=== PATIENT | male | born 1945 | race Caucasian/White ===

== ENCOUNTER 2024-07-15 06:35 | Emergency (ER) | payer MEDICARE, SELFPAY ==
[2024-07-15] VITALS (32 sets, daily range): BP systolic 129–163; BP diastolic 73–96; PULSE 100–132; RESP 14–24; O2SAT 94–100
--- NOTE | ~2024-07-15 | CT_ITS ---
EXAMINATION: CTA chest abdomen pelvis DATE: 07/15/2024 07:48 INDICATION: Epigastric abdominal pain. Back pain. TECHNIQUE: Computed tomographic angiography (CTA) of the chest, abdomen, and pelvis was performed wit h 100 mL Omnipaque-350 intravenous contrast. Automated exposure control and iterative reconstruction technique were employed. The dose-length product was 466.47 mGy-cm. Maximum intensity projection 3D-r econstructions of the aorta and other arteries were constructed by the technologist on a separate wor kstation. COMPARISON: None. FINDINGS: CHEST CTA: The lungs demonstrate mild atelectasis. A calcified left lung nodule and calcified left hilar lymph n odes are consistent with old granulomatous disease. No pleural effusion. The heart size is normal. No pericardial effusion. There is no pulmonary embolus. There is mild aortic atherosclerosis. There is mild chronic height loss of multiple vertebral bodies. There is mild thoracic spondylosis. ABDOMEN AND PELVIS CTA: The liver is normal. There are gallstones in the gallbladder, which is distended. Gallbladder wall th ickening is noted. There is a stone in the gallbladder neck. The spleen, pancreas, adrenal glands, an d right kidney are normal. There is a 2.7 cm mass in left kidney with heterogeneous attenuation. The appendix is normal. There are no dilated loops of bowel. Aortic atherosclerosis is noted. There is no significant stenosis of celiac axis, superior mesenteric artery, the renal arteries, or inferior mes enteric artery. There are no pathologically enlarged lymph nodes. There is no free intraperitoneal fl uid. There is moderate lumbar spondylosis. IMPRESSION: 1. Mild aortic atherosclerosis. No aneurysm or dissection. 2. Acute cholecystitis. 3. 2.7 cm mass in left kidney suspicious for renal cell carcinoma. Abdomen CT without and with contra st is recommended. Reviewed, dictated and finalized at location A. IMPRESSION: 1. Mild aortic atherosclerosis. No aneurysm or dissection. 2. Acute cholecystitis. 3. 2.7 cm mass in left kidney suspicious for renal cell carcinoma. Abdomen CT w ithout and with contrast is recommended.
--- NOTE | 2024-07-15 06:46 | ECG_ITS ---
Test Date: 2024-07-15 06:51:23 Measurements Intervals [place] Rate: 114 P: 41 AR: 207 QRS: 2 QRSD: 89 T: 10 QT: 300 QTc: 414 Interpretive Statements SINUS TACHYCARDIA WITH FIRST DEGREE AV BLOCK POSSIBLE LEFT ATRIAL ENLARGEMENT LOW QRS VOLTAGE IN PRECORDIAL LEADS INFERIOR INFARCT, AGE INDETERMINATE BASELINE ARTIFACT- I, III, AVR, AVL ABNORMAL ECG No previous ECG available for comparison Electronically Signed On 07-15-2024 10:39:12 CDT by Jose Cullen D.O.
[2024-07-15 07:07] LABS: Add Urine Microscopic? NO; Appearance Urine Clear (Clear); Bilirubin Urine Negative (Negative); Blood Urine Negative (Negative); Color Urine Yellow (Yellow); Glucose Urine UA 2+ mg/dL (Negative); Ketones Urine 2+ mg/dL (Negative); Leukocyte Esterase Ur Negative LEU/UL (Negative); Nitrate Urine Negative (Negative); Protein Urine Negative (Negative); Specific Grav Ur 1.019 (1.001-1.035); Urobilinogen Urine 0.2 mg/dL (<2.0)
[2024-07-15 07:10] LABS: Basophils Percent Auto 0.2 % (0.2-1.2); Eosinophils Percent Auto 0.2 % (0-4.4); Hematocrit 44.5 % (42.0-52.0); Hemoglobin 15.1 g/dL (14.0-18.0); Immature Granulocyte Absolute 0.25 K/mm3 (0.00-0.031); Immature Granulocyte Percent A 1.9 % (0-0.5); Lymphocytes Percent Auto 14.6 % (18.3-44.2); Mean Corpuscular HGB Conc 33.9 g/dl (32-36); Mean Corpuscular Hemoglobin 32.1 pg (26-34); Mean Corpuscular Volume 94.5 fl (80-100); Mean Platelet Volume 10.3 fl (7.4-10.4); Monocytes Absolute Auto 0.8 K/mm3 (0.1-0.6); Neutrophils Absolute Auto 10.1 K/mm3 (1.3-6.7); Neutrophils Percent Auto 77.1 % (45.5-73.1); Platelet Count Result 148 k/mm3 (150-375); Red Blood Count 4.71 M/mm3 (4.6-6.20); Red Cell Distribution Width 12.5 % (11.5-14.5); White Blood Count 13.1 K/mm3 (4.5-10.0)
--- NOTE | 2024-07-15 07:10 | ED.ABDPAIN ---
HPI - Abdominal Pain General Chief Complaint: Abdominal Pain Stated Complaint: abd pain Time Seen by Provider: 07/15/24 06:58 History of Present Illness HPI narrative: This is a 78-year-old male with a past medical history significant for hypertension diabetes who presents to the emergency room with a chief complaint of ?heartburn ?patient states that approximately 8:00 p.m. last night yet the son sensation that he was having severe pain between his shoulder blades he described as a sharp and tingling sensation. 30 minutes after they started developing and epigastric abdominal pain he described as heartburn but states that does not feel similar to his previous heartburn episodes. Pain has been present since this episode. Does not presently radiate to his back or chest. No associated difficulty breathing, nausea, vomiting, diaphoresis, pelvic pain, weakness, fatigue neuropathy. He took 4 baby aspirin prior to arrival to the emergency department. Patient is concerned that he is having some kind of cardiac event. No history of coronary disease or aortic pathology to patient's knowledge. Was otherwise in his normal state of health and had a regular outpatient primary care provider visit last week with no changes to his medication regimen. Related Data Allergies Allergy/AdvReac Type Severity Reaction Status Date / Time sulfamethoxazole Allergy Redness of Verified 07/15/24 06:46 [From Bactrim] Skin trimethoprim [From Bactrim] Allergy Redness of Verified 07/15/24 06:46 Skin Review of Systems Review of Systems: As reviewed above in HPI PMFSH Past Medical History Medical History (Updated 07/15/24 @ 12:13 by Aneesh Pham MD) Diabetes Hypertension Exam Narrative: GENERAL: [Well-appearing, well-nourished, and in no acute distress.] HEAD: [Normocephalic, atraumatic.] EYES: [PERRLA and EOMI.] ENT: Nares clear, no rhinorrhea or epistaxis. Mucous membranes moist. NECK: Supple. CHEST: [Clear to auscultation. No respiratory distress.] HEART: [Regular rate and rhythm]. No murmur heard. [Normal peripheral pulses.] Warm extremities, 2+ radial pulses. 2+ dorsalis pedis pulses. ABDOMEN: [Soft, nondistended], [nontender], [No rigidity or guarding] EXTREMITIES: Normal range of motion. [No edema.] SKIN: Warm, dry, no rash. NEURO: [No focal deficits]. Alert and oriented [x3.] PSYCH: [Normal mood and affect.] Course Vital Signs Vital signs: Vital Signs Pulse Rate 126 H 07/15/24 06:42 Respiratory Rate 22 H 07/15/24 06:42 Blood Pressure 160/96 H 07/15/24 06:42 Pulse Oximetry 100 07/15/24 06:42 Oxygen Delivery Room Air 07/15/24 06:42 Pulse Rate 111 H 07/15/24 11:30 Respiratory Rate 24 H 07/15/24 11:30 Blood Pressure 133/76 07/15/24 10:01 Pulse Oximetry 99 07/15/24 11:30 Oxygen Delivery Room Air 07/15/24 06:42 MDM - Abdominal Pain MDM Narrative Medical decision making narrative: This is a 78-year-old male with history of hypertension and diabetes who presents today with a chief complaint of ?heartburn. He describes a episode of severe sharp pain in the center of his shoulder blades associated with a tingling sensation at approximately 8:00 p.m. last night sudden onset without any trauma or injury. This was nonexertional onset. 30 minutes after this was onset he started feeling abdominal discomfort and epigastric pain he describes as below his rib cage. No associated nausea, vomiting, weakness, fatigue, neurological symptoms, diaphoresis. Patient states his shoulder blade pain has since subsided. He did take aspirin prior to arrival. Abdominal pain still present although he has a soft nontender nondistended abdomen. He has normal peripheral perfusion and a benign neurological assessment, clear lung auscultation. He is tachycardic, hypertensive a little tachypneic. Differential diagnosis at this time includes ACS, acute aortic syndrome, heartburn, gastritis, cholelit
[2024-07-15 07:17] LABS: Alanine Aminotransferase 19 U/L (6-50); Albumin Level 4.6 g/dL (3.5-5.1); Alkaline Phosphatase 77 U/L (38-126); Anion Gap 12 mmol/L (4-12); Aspartate Amino Transferase 44 U/L (17-59); Bilirubin,Total 1.9 mg/dL (0.2-1.3); Blood Urea Nitrogen 27 mg/dL (9-20); Calcium 9.1 mg/dL (8.4-10.2); Carbon Dioxide 26 mmol/L (22-30); Chloride 95 mmol/L (98-107); Estimated CRCL calculation 63 ml/min; Estimated Glomerular Filt Rate > 60; Glucose 206 mg/dL (65-110); Lipase 171 U/L (23-300); Potassium 3.8 mmol/L (3.4-5.0); Sodium 133 mmol/L (137-145)
[2024-07-15] MEDS: FAMOTIDINE 20 MG/2 ML VIAL IV PUSH (07:17)
[2024-07-15] MEDS: MORPHINE SULFATE (*CRX) 4 MG/ML INJ IV PUSH (07:17)
[2024-07-15] MEDS: LACTATED RINGERS 1,000 ML 999 ML IV CONT ×2 (07:18→08:55)
[2024-07-15] MEDS: metroNIDAZOLE 500 MG/ISO 100ML 500 MG/100 ML BAG 100 MG IVPB (08:47)
[2024-07-15 09:12] LABS: Troponin I < 0.012 ng/mL (0.000-0.034)
== END 2024-07-15 12:28 | disposition home or self-care (01) ==
PROVIDERS: Emergency Medicine; Emergency Provider Student in an Organized Health Care Education/Training Program
DX: K81.0 Acute cholecystitis (principal); C64.2 Malignant neoplasm of left kidney, except renal pelvis; I10 Essential (primary) hypertension; E11.9 Type 2 diabetes mellitus without complications
CPT/HCPCS: 36415; 71275; 74174; 80053; 81003; 83690; 84484; 85025; 93005; 96361; 96365; 96367; 96375; 99284; J0696; J1836; J2270; J7120; Q9967

== ENCOUNTER 2024-07-17 09:38 | Inpatient (IN) | payer MEDICARE, SELFPAY ==
[2024-07-17] VITALS (37 sets, daily range): BP systolic 151–177; BP diastolic 72–100; PULSE 89–116; RESP 17–19; TEMP 36.7–38.4; O2SAT 92–100; BMI 23.6
--- NOTE | ~2024-07-17 | MR_ITS ---
EXAMINATION: MR MRCP wo/w con/w 3D wo ind DATE: 07/18/2024 08:09 INDICATION: Hyperbilirubinemia TECHNIQUE: Magnetic resonance imaging (MRI) of the abdomen was performed without and with 15 mL Multi priti intravenous contrast. Sequences included coronal T2-weighted SS-FSE, coronal T2-weighted FS SS- FSE, coronal T2-weighted FS FIESTA, axial T2-weighted FS FIESTA, axial T2-weighted FIESTA, sagittal T 2-weighted SS-FSE, axial T1-weighted dual-echo FSPGR, axial T2-weighted SS-FSE, axial T1-weighted LAV A, axial T2-weighted STIR FSE. Thick-slab T2-weighted FRFSE-XL images were obtained for magnetic reso nance cholangiopancreatography (MRCP). Rotating maximum intensity projection 3-D reconstructions of t he volumetric data were created by the technologist. Postcontrast sequences included a time course of axial T1-weighted LAVA. COMPARISON: CT dated 07/15/2024 FINDINGS: ABDOMEN MRI: Heart size is normal. No pericardial or pleural effusion. Periportal edema throughout th e liver. There is gallbladder wall thickening with surrounding inflammatory stranding consistent with acute cholecystitis. There are a few low signal intensity gallstones, the largest persists and is li jailyn impacted at the neck of the gallbladder. The pericholecystic inflammation has progressed since t he prior study, now extending about the duodenum and the head of the otherwise normal pancreas. Splee n and bilateral adrenal glands are normal. There are bilateral parapelvic cysts at the kidneys. 2.8 c m exophytic enhancing mass at the anterior interpolar region of the left kidney consistent with renal cell carcinoma. There is edematous wall thickening at the duodenum which is likely reactive related to the adjacent acute cholecystitis. Visualized bowels are otherwise unremarkable with no obstruction . There is mild spondylosis in the thoracic and lumbar spine with associated fibrofatty degenerative endplate changes at a few levels. Marrow signal otherwise normal. ABDOMEN MRCP: No intrahepatic ductal or ductal dilation. Common bile duct is normal in caliber measuring 2-3 mm in maximal diameter with no evident choledocholithiasis or other obstructing masses or lesions. Main conrad creatic duct is also normal caliber throughout. IMPRESSION: 1. Acute cholecystitis with likely impacted gallstone at the neck of the gallbladder. 2. 2.8 cm enhancing left renal mass consistent with renal cell carcinoma. Reviewed, dictated and finalized at location B. IMPRESSION: 1. Acute cholecystitis with likely impacted gallstone at the neck of the gallbl adder. 2. 2.8 cm enhancing left renal mass consistent with renal cell carcinoma.
--- NOTE | ~2024-07-17 | XR_ITS ---
EXAMINATION: XR chest 1V portable DATE: 07/18/2024 09:16 INDICATION: Chest pain. TECHNIQUE: A single frontal view of the chest was obtained. COMPARISON: Chest CT 07/15/2024 FINDINGS: Calcified pulmonary nodules are consistent with old granulomatous disease. There is mild at electasis at the lung bases. No pleural effusion or pneumothorax. The heart size is normal. There is a prominent fat pad in left costophrenic angle. IMPRESSION: 1. Mild atelectasis at the lung bases. Reviewed, dictated and finalized at location A.
--- NOTE | ~2024-07-17 | US_ITS ---
EXAMINATION: US abdomen limited DATE: 07/17/2024 10:40 INDICATION: Biliary colic. TECHNIQUE: Multiple grayscale and Doppler ultrasound images of the abdomen were obtained. COMPARISON: CT 07/15/2024 FINDINGS: The visualized portion of the body of the pancreas is normal. The liver is normal without f ocal lesion. There is normal flow in main portal vein. The gallbladder is normal in size and contains gallstones. Gallbladder wall thickening is noted. There was no sonographic Ellis's sign. The common duct is normal and measures 4 mm. There is trace pericholecystic fluid. IMPRESSION: 1. Normal-sized gallbladder with gallstones and gallbladder wall thickening suspicious for acute chol ecystitis. Reviewed, dictated and finalized at location A. IMPRESSION: 1. Normal-sized gallbladder with gallstones and gallbladder wall thickening karen picious for acute cholecystitis.
[2024-07-17 10:05] LABS: Basophils Percent Auto 0.2 % (0.2-1.2); Eosinophils Percent Auto 0.1 % (0-4.4); Hematocrit 45.7 % (42.0-52.0); Hemoglobin 15.7 g/dL (14.0-18.0); Immature Granulocyte Absolute 0.11 K/mm3 (0.00-0.031); Immature Granulocyte Percent A 0.6 % (0-0.5); Lymphocytes Absolute Auto 1.06 K/mm3 (0.9-3.2); Lymphocytes Percent Auto 6.2 % (18.3-44.2); Mean Corpuscular HGB Conc 34.4 g/dl (32-36); Mean Corpuscular Hemoglobin 32.6 pg (26-34); Mean Corpuscular Volume 94.8 fl (80-100); Mean Platelet Volume 10.4 fl (7.4-10.4); Neutrophils Absolute Auto 14.9 K/mm3 (1.3-6.7); Neutrophils Percent Auto 86.9 % (45.5-73.1); Platelet Count Result 147 k/mm3 (150-375); Red Blood Count 4.82 M/mm3 (4.6-6.20); Red Cell Distribution Width 12.8 % (11.5-14.5); White Blood Count 17.1 K/mm3 (4.5-10.0)
[2024-07-17 10:09] LABS: Add Urine Microscopic? YES; Appearance Urine Clear (Clear); Bacteria Urine None Seen /hpf; Bilirubin Urine Negative (Negative); Blood Urine Non-Hemolyzed Trace (Negative); Color Urine Yellow (Yellow); Glucose Urine UA 3+ mg/dL (Negative); Ketones Urine 4+ mg/dL (Negative); Leukocyte Esterase Ur Negative LEU/UL (Negative); Nitrate Urine Negative (Negative); Protein Urine 1+ mg/dL (Negative); RBC Urine 0-2 /hpf (0-2); Specific Grav Ur 1.036 (1.001-1.035); Squamous Epithelial Cell Urine None Seen /hpf (Few); WBC Urine 0-5 /hpf (0-3)
--- NOTE | 2024-07-17 10:23 | ED.ABDPAIN ---
HPI - Abdominal Pain General Chief Complaint: Abdominal Pain Stated Complaint: abd pain gallblader problems Time Seen by Provider: 07/17/24 09:44 Source: patient Mode of arrival: ambulatory Limitations: no limitations History of Present Illness HPI narrative: This is a 78 year old male that presents to the ER for epigastric abdominal pain. Ongoing over the last couple of days. Was evaluated in the ER and diagnosed with cholecystitis. Started on oral antibiotics and was going to have further outpatient follow-up. His pain has been uncontrolled with prescribed pain medications which prompted him to be seen today. He has not been able to eat much due to pain. Denies fevers or vomiting. Related Data Home Medications Medication Instructions Recorded Confirmed aspirin 81 mg tablet 81 mg PO DAILY 07/17/24 07/17/24 atorvastatin 10 mg tablet 10 mg PO DAILY 07/17/24 07/17/24 lisinopril 2.5 mg tablet 2.5 mg PO DAILY 07/17/24 07/17/24 metformin 1,000 mg tablet 1,000 mg PO BID 07/17/24 07/17/24 [id number] 120 mcg-lutein 1 tablet PO DAILY 07/17/24 07/17/24 150 mcg-herb 50 mg chewable tablet (Alive Men's 50 Plus Multivitamin) sitagliptin phosphate 25 mg tablet 25 mg PO DAILY 07/17/24 07/17/24 (Januvia) Allergies Allergy/AdvReac Type Severity Reaction Status Date / Time sulfamethoxazole Allergy Redness of Verified 07/15/24 06:46 [From Bactrim] Skin trimethoprim [From Bactrim] Allergy Redness of Verified 07/15/24 06:46 Skin Review of Systems Review of Systems: CONSTITUTIONAL: Denies fever GASTROINTESTINAL: Reports abdominal pain, nausea. Denies vomiting, or diarrhea. All systems reviewed & are unremarkable except as noted in HPI and below PMFSH Past Medical History Medical History Diabetes Dyslipidemia History of prostate cancer s/p prostatectomy Hypertension Surgical History Surgical History History of prostatectomy Social History Social History Smoking status: Never smoker Alcohol intake: never Alcohol use details: Occasional, maybe 2-3 drinks per week. Substance use: never Do You Feel Safe in your Home?: Yes Lack of Transportation: No Lack of Food: Never True Current Housing: I Have Housing Concerned About Future Housing: No Difficulty Paying Gas/Electric Bills: No Difficulty Paying for Meds: No Currently Unemployed: No Education: Bachelor's Degree Difficulty w/ Childcare or Family Care: No Living arrangements: alone Spiritual care concerns: No Exam Narrative: GENERAL: Well-appearing, well-nourished, and in no acute distress. HEAD: Normocephalic, atraumatic. EYES: EOMI. CHEST: Clear to auscultation. No respiratory distress. No wheezes rales or rhonchi HEART: Regular rate and rhythm. No murmur heard. Normal peripheral pulses. ABDOMEN: Soft, nondistended, normal active bowel sounds. Mild tenderness to palpation in the epigastrium and RUQ, without guarding EXTREMITIES: Normal range of motion. No edema. SKIN: Warm, dry, no rash. NEURO: No focal deficits. Alert and oriented x3. PSYCH: Normal mood and affect Course Course Emergency Course: Patient updated on his workup and recommendation for admission Consultations Consultation #1: Spoke with general surgery who will consult. Date: 07/17/24 Consultation #2: Spoke with hospitalist who accepts admission Date: 07/17/24 Vital Signs Vital signs: Vital Signs Temperature 98.0 F 07/17/24 09:42 Pulse Rate 116 H 07/17/24 09:42 Respiratory Rate 17 07/17/24 09:42 Blood Pressure 156/95 H 07/17/24 09:42 Pulse Oximetry 98 07/17/24 09:42 Oxygen Delivery Room Air 07/17/24 09:42 Temperature 99.3 F 07/17/24 18:18 Pulse Rate 111 H 07/17/24 15:32 Respiratory Rate 19 07/17/24 15:32 Blood Pressure 155
[2024-07-17] MEDS: ONDANSETRON INJ 4 MG/2 ML VIAL IV PUSH (10:30)
[2024-07-17] MEDS: MORPHINE SULFATE (*CRX) 4 MG/ML INJ IV PUSH (10:31)
[2024-07-17] MEDS: SODIUM CHLORIDE 0.9% IV 1,000 ML 999 ML IV CONT ×2 (10:31→13:35)
[2024-07-17 10:39] LABS: Alanine Aminotransferase 18 U/L (6-50); Albumin Level 4.6 g/dL (3.5-5.1); Alkaline Phosphatase 53 U/L (38-126); Anion Gap 13 mmol/L (4-12); Aspartate Amino Transferase 35 U/L (17-59); Bilirubin,Total 3.1 mg/dL (0.2-1.3); Blood Urea Nitrogen 15 mg/dL (9-20); Calcium 9.1 mg/dL (8.4-10.2); Carbon Dioxide 24 mmol/L (22-30); Chloride 96 mmol/L (98-107); Estimated CRCL calculation 63 ml/min; Estimated Glomerular Filt Rate > 60; Glucose 234 mg/dL (65-110); Lipase 45 U/L (23-300); Potassium 4.2 mmol/L (3.4-5.0); Sodium 133 mmol/L (137-145)
[2024-07-17 11:23] LABS: Lactic Acid Reflex 0.5 mmol/L (0.7-2.0)
[2024-07-17 11:27] LABS: CRP 4.4 mg/dL (<1.0)
[2024-07-17] MEDS: PIPERACILLN/TAZ 3.375GM/NS50ML 3.375 GM/50 ML BAG IVPB ×3 (13:37→23:40)
--- NOTE | 2024-07-17 13:38 | PM.CNGS ---
Assessment and Plan Assessment and plan (1) Acute cholecystitis: Code(s): K81.0 - Acute cholecystitis Status: Acute Assessment and Plan: This is the second presentation to the ED in 3 days for epigastric pain with imaging suggesting acute cholecystitis. WBC count has gone up to 17,000 and his total bilirubin is elevated at 3.1 as well. No biliary dilatation on CTA or ultrasound. We would recommend getting an MRCP to further evaluate for choledocholithiasis. He will eventually need a cholecystectomy, but will await MRCP results. If there is a common duct stone, then he will need GI consultation. Keep NPO for now with IV fluids and IV antibiotics. Will follow along. (2) Hyperbilirubinemia: Code(s): E80.6 - Other disorders of bilirubin metabolism Status: Acute Assessment and Plan: Total bilirubin is up from 1.9 to 3.1 today. Will get an MRCP to rule out common bile duct stone. Could also be related to cholecystitis. Trend labs. (3) Renal mass: Code(s): N28.89 - Other specified disorders of kidney and ureter Status: Acute Assessment and Plan: Incidentally noted on CTA 2 days ago, concerning for renal cell carcinoma. Urology consulted by ED provider and patient reportedly is scheduled for an appointment as an outpatient on Wednesday for further workup. (4) Diabetes: Code(s): E11.9 - Type 2 diabetes mellitus without complications Status: Chronic (5) Hypertension: Code(s): I10 - Essential (primary) hypertension Status: Chronic Plan I have discussed the patient's case and plan of care with Dr. Diaz. Thank you for allowing us to see the patient in consultation and we will continue to follow along with you. History of Present Illness Consult details Consult date: 07/17/24 Reason for consult: other (Acute cholecystitis) Requesting physician: Emily Moses PA-C Narrative: This is a 78 yo man with PMH diabetes, hypertension, hyperlipidemia, who we have been asked to see in surgical consultation for acute cholecystitis. He initially came into the ED on Wednesday with complaints of epigastric abdominal pain starting the night prior. He reports eating dinner Wednesday evening and first noticing heartburn. A few hours later, he developed epigastric abdominal pain that radiated into his back between his shoulder blades. Workup in the ED showed mild leukocytosis and mild elevation in his total bilirubin. Cardiac workup negative for acute coronary syndrome. CTA chest, abdomen, and pelvis showed findings of acute cholecystitis with a gallstone in the gallbladder neck, as well as a 2.7 cm mass in the left kidney suspicious for renal cell carcinoma, and mild aortic atherosclerosis. His abdominal pain resolved in the ED and he was discharged home with oral antibiotics and follow-up with Dr. Pedersen this week. He was also sent home with Tylenol and Zofran. He reports no symptoms until around noon the following day. He had cereal in the morning for breakfast and a few hours later, his epigastric abdominal pain returned. He denies nausea, vomiting, fever, or chills. Denies acholic stools or dark-colored urine. He tried taking Tylenol for his pain, which would help for an hour and a half, and then the pain would progress again. Due to his persistent pain, he returned to the ED today for evaluation. Labs revealed his WBC count up to 17,000 and total bilirubin is up to 3.1. Lipase normal. RUQ abdominal ultrasound showed a normal-sized gallbladder with gallstones and gallbladder wall thickening suspicious for acute cholecystitis. Our service was contacted by the ED provider and he is now seen in the ED. His abdominal pain has resolved after having IV Morphine. He denies any other complaints at this time. Only previous surgical history is a prostatectomy over 25 years ago. Review of Systems Review of Systems: All systems reviewed & are unremarkable except as noted in HPI and below PMFSH Past Medical Histo
--- NOTE | 2024-07-17 14:10 | PC.NURSE ---
Called [facility] was told that nurse was at lunch and she would call back when she's available.
[2024-07-17] MEDS: ACETAMINOPHEN 325 MG TABLET 650 MG PO (16:22)
[2024-07-17] MEDS: SODIUM CHLORIDE 0.9% IV 1,000 ML 125 ML IV CONT (16:22)
[2024-07-17 17:20] LABS: Glucose Point of Care 205 mg/dl (65-105)
[2024-07-17 20:42] LABS: Glucose Point of Care 178 mg/dl (65-105)
--- NOTE | 2024-07-17 23:17 | PM.IMHP ---
H&P: HPI History of Present Illness Date/Time: 07/17/24 23:30 Chief Complaint: Abdominal pain. Narrative: This is a pleasant 78-year-old male with hypertension and type 2 diabetes mellitus who presented to the emergency department via private vehicle for evaluation of abdominal pain. The patient provides the following history. He has been having upper abdominal pain for several days and was seen in emergency department 2 days ago at which time he was diagnosed with cholecystitis. CT scan also showed a 2.7 cm mass in the left kidney suspicious for renal cell carcinoma. ED physician consulted with the on-call surgeon who recommended antibiotics and outpatient follow-up. He does not have much of an appetite and admits he has not really had anything to eat or drink the last couple of days. His pain continues and he has started to develop chills and sweats and he returned. He denies cold and flu symptoms, chest pain, shortness of breath, vomiting, diarrhea, dysuria, and hematuria. In the ED: Temperature was as high as 101.2? F. he has been tachycardic in the low 100s. Blood pressures have been running in the 160s to 170 systolic. Labs are significant for WBC count of 17.1, platelet 147, sodium 133, chloride 96, glucose 234, lactic acid 0.5, total bilirubin 3.1, CRP 4.4. Abdominal ultrasound showed the suspicious for acute cholecystitis. He received 2 L IV fluid and was started on Zosyn. He is being admitted in this setting for further treatment and surgery consultation. Review of Systems Review of Systems: 12 systems were reviewed and are negative except for as per HPI. [facility] Past Medical History Medical History (Updated 07/17/24 @ 23:40 by Janae Rios PA-C) Dyslipidemia Hypertension Prostate cancer Status post prostatectomy. Type 2 diabetes mellitus Surgical History Surgical History History of prostatectomy Social History Social History (Updated 07/17/24 @ 23:37 by Janae Rios PA-C) Social History: Surrogate medical decision maker: Francisco J Roth, brother. Code status: Full code. Smoking status: Never smoker Alcohol intake: never Alcohol use details: Occasional, maybe 2-3 drinks per week. Substance use: never Do You Feel Safe in your Home?: Yes Lack of Transportation: No Lack of Food: Never True Current Housing: I Have Housing Concerned About Future Housing: No Difficulty Paying Gas/Electric Bills: No Difficulty Paying for Meds: No Currently Unemployed: No Education: Bachelor's Degree Difficulty w/ Childcare or Family Care: No Living arrangements: alone Spiritual care concerns: No Meds Home Medications and Allergies Home Medications Medication Instructions Recorded Confirmed Type acetaminophen 500 mg tablet 1,000 mg PO TID PRN pain #30 tabs 07/15/24 07/17/24 Rx (Tylenol Extra Strength) ondansetron 4 mg disintegrating 4 mg PO Q8H PRN nausea and 07/15/24 07/17/24 Rx tablet vomiting #10 tabs aspirin 81 mg tablet 81 mg PO DAILY 07/17/24 07/17/24 History atorvastatin 10 mg tablet 10 mg PO DAILY 07/17/24 07/17/24 History lisinopril 2.5 mg tablet 2.5 mg PO DAILY 07/17/24 07/17/24 History metformin 1,000 mg tablet 1,000 mg PO BID 07/17/24 07/17/24 History [id number]-pll-upzaz 120 mcg-lutein 1 tablet PO DAILY 07/17/24 07/17/24 History 150 mcg-herb 50 mg chewable tablet (Alive Men's 50 Plus Multivitamin) sitagliptin phosphate 25 mg tablet 25 mg PO DAILY 07/17/24 07/17/24 History (Lita) Allergies Allergy/AdvReac Type Severity Reaction Status Date / Time sulfamethoxazole Allergy Redness of Verified 07/15/24 06:46 [From Bactrim] Skin trimethoprim [From Bactrim] Allergy Redness of Verified 07/15/24 06:46 Skin Vital Signs Vital Signs - 24 hr 07/17/24 09:42 07/17/24 10:03 07/17/24 10:15 Temperature 98.0 F Pulse Rate 116 H Respiratory Rate 17 Blood Pressure 156/95 H
[2024-07-18 00:25] LABS: Anion Gap 13 mmol/L (4-12); Blood Urea Nitrogen 10 mg/dL (9-20); Calcium 8.6 mg/dL (8.4-10.2); Carbon Dioxide 19 mmol/L (22-30); Chloride 103 mmol/L (98-107); Estimated CRCL calculation 63 ml/min; Estimated Glomerular Filt Rate > 60; Glucose 179 mg/dL (65-110); Potassium 4.2 mmol/L (3.4-5.0); Sodium 135 mmol/L (137-145)
[2024-07-18 00:33] LABS: Beta-Hydroxybutyrate/Acetoacetate 2.68 mmol/L (0.02-0.27)
[2024-07-18] MEDS: ACETAMINOPHEN 325 MG TABLET 650 MG PO (02:27)
[2024-07-18] MEDS: SODIUM CHLORIDE 0.9% IV 1,000 ML 100 ML IV CONT (02:27)
[2024-07-18 06:00] VITALS: BP 151/70; PULSE 108; RESP 18; TEMP 37.3; O2SAT 95
[2024-07-18 06:02] LABS: Basophils Percent Auto 0.2 % (0.2-1.2); Eosinophils Percent Auto 0.1 % (0-4.4); Hemoglobin 14.4 g/dL (14.0-18.0); Immature Granulocyte Absolute 0.13 K/mm3 (0.00-0.031); Immature Granulocyte Percent A 0.9 % (0-0.5); Immature Platelet Fraction Pct 4.4 % (0.9-11.2); Lymphocytes Absolute Auto 0.76 K/mm3 (0.9-3.2); Lymphocytes Percent Auto 5.3 % (18.3-44.2); Mean Corpuscular HGB Conc 34.3 g/dl (32-36); Mean Corpuscular Hemoglobin 32.8 pg (26-34); Mean Corpuscular Volume 95.7 fl (80-100); Mean Platelet Volume 10.7 fl (7.4-10.4); Monocytes Absolute Auto 0.7 K/mm3 (0.1-0.6); Monocytes Percent Auto 5.1 % (2.6-8.5); Neutrophils Absolute Auto 12.8 K/mm3 (1.3-6.7); Neutrophils Percent Auto 88.4 % (45.5-73.1); Platelet Count Result 142 k/mm3 (150-375); Red Blood Count 4.39 M/mm3 (4.6-6.20); Red Cell Distribution Width 12.9 % (11.5-14.5); White Blood Count 14.4 K/mm3 (4.5-10.0)
[2024-07-18] MEDS: PIPERACILLN/TAZ 3.375GM/NS50ML 3.375 GM/50 ML BAG IVPB ×4 (06:08→23:06)
[2024-07-18 06:12] LABS: Alanine Aminotransferase 13 U/L (6-50); Albumin Level 3.8 g/dL (3.5-5.1); Alkaline Phosphatase 59 U/L (38-126); Anion Gap 13 mmol/L (4-12); Aspartate Amino Transferase 24 U/L (17-59); Bilirubin,Total 2.1 mg/dL (0.2-1.3); Blood Urea Nitrogen 10 mg/dL (9-20); Calcium 8.4 mg/dL (8.4-10.2); Carbon Dioxide 17 mmol/L (22-30); Chloride 103 mmol/L (98-107); Estimated CRCL calculation 71 ml/min; Estimated Glomerular Filt Rate > 60; Glucose 184 mg/dL (65-110); Magnesium 1.9 mg/dL (1.6-2.3); Potassium 4.1 mmol/L (3.4-5.0); Sodium 133 mmol/L (137-145)
[2024-07-18 08:33] LABS: Glucose Point of Care 204 mg/dl (65-105)
[2024-07-18 08:44] VITALS: BP 166/82; PULSE 106; RESP 18; TEMP 37.1; O2SAT 95
[2024-07-18] MEDS: lisinopriL 2.5 MG TABLET PO (08:46)
--- NOTE | 2024-07-18 09:29 | WPDURCON ---
Assessment and Plan Assessment and plan (1) Left renal mass: Code(s): N28.89 - Other specified disorders of kidney and ureter Status: Acute Assessment and Plan: 2.7 cm left renal mass suspicious for renal cell carcinoma incidentally noted on CTA. Discussed findings with patient at length. Outpatient follow-up has been arranged. No further intervention during this hospitalization. Urology Consult Note HPI Date Seen: 07/18/24 Requesting Physician: Kurt Frank MD Primary Care Provider: UNKNOWN,DOCTOR Consult Narrative Narrative: Favian Roth is a 78 year old male with a history of prostate cancer s/p prostatectomy in 2002 who is being seen in consultation for left renal mass. The patient initially presented to the emergency department on 07/15/2024 with complaints of her per in concern for cardiac event. He had full workup completed during that time including a CTA of the chest/abdomen/pelvis which incidentally revealed a 2.7 cm mass in the left kidney suspicious for renal cell carcinoma. Case was discussed with Dr. Carroll by ER physician and patient was informed of need for outpatient follow-up. He was discharged from the ER. He has been scheduled for an outpatient visit with Dr. Huddlseton on 07/21/2024. Unfortunately, he presented again to the ER on 07/17/2024 with complaints of epigastric abdominal pain and was admitted for possible cholecystitis. He requested urologic evaluation during admission to further address his left renal mass. At the time of my evaluation, the patient is feeling well. He denies flank pain or back pain. He has no additional concerns at this time. Following his prostatectomy, he has not required any further urologic follow-up and has had no issues. He denies any family history of malignancy. He is a never smoker. Review of Systems Review of Systems: All systems reviewed & are unremarkable except as noted in HPI and below PMFSH Past Medical History Medical History (Updated 07/17/24 @ 23:40 by Janae Rios PA-C) Dyslipidemia Hypertension Prostate cancer Status post prostatectomy. Type 2 diabetes mellitus Surgical History Surgical History History of prostatectomy Social History Social History (Updated 07/17/24 @ 23:37 by Janae Rios PA-C) Social History: Surrogate medical decision maker: Francisco J Roth, brother. Code status: Full code. Smoking status: Never smoker Alcohol intake: never Alcohol use details: Occasional, maybe 2-3 drinks per week. Substance use: never Do You Feel Safe in your Home?: Yes Lack of Transportation: No Lack of Food: Never True Current Housing: I Have Housing Concerned About Future Housing: No Difficulty Paying Gas/Electric Bills: No Difficulty Paying for Meds: No Currently Unemployed: No Education: Bachelor's Degree Difficulty w/ Childcare or Family Care: No Living arrangements: alone Spiritual care concerns: No Meds Home Medications and Allergies Home Medications Medication Instructions Recorded Confirmed Type acetaminophen 500 mg tablet 1,000 mg PO TID PRN pain #30 tabs 07/15/24 07/17/24 Rx (Tylenol Extra Strength) ondansetron 4 mg disintegrating 4 mg PO Q8H PRN nausea and 07/15/24 07/17/24 Rx tablet vomiting #10 tabs aspirin 81 mg tablet 81 mg PO DAILY 07/17/24 07/17/24 History atorvastatin 10 mg tablet 10 mg PO DAILY 07/17/24 07/17/24 History lisinopril 2.5 mg tablet 2.5 mg PO DAILY 07/17/24 07/17/24 History metformin 1,000 mg tablet 1,000 mg PO BID 07/17/24 07/17/24 History [id number] 120 mcg-lutein 1 tablet PO DAILY 07/17/24 07/17/24 History 150 mcg-herb 50 mg chewable tablet (Alive Men's 50 Plus Multivitamin) sitagliptin phosphate 25 mg tablet 25 mg PO DAILY 07/17/24 07/17/24 History (Lita) Allergies Allergy/AdvReac Type Severity Reaction Status Date / Time sulf
--- NOTE | 2024-07-18 09:52 | ECG_ITS ---
Measurements Intervals [place] Rate: 103 P: 24 TX: 164 QRS: -8 QRSD: 105 T: -1 QT: 332 QTc: 391 Interpretive Statements SINUS TACHYCARDIA DELAYED PRECORDIAL R/S TRANSITION INFERIOR INFARCT, AGE INDETERMINATE ABNORMAL ECG Electronically Signed On 07-18-2024 15:19:21 CDT by Jose HURST
[2024-07-18 10:09] LABS: Beta-Hydroxybutyrate/Acetoacetate 3.25 mmol/L (0.02-0.27)
[2024-07-18 10:12] LABS: Troponin I < 0.012 ng/mL (0.000-0.034)
--- NOTE | 2024-07-18 10:44 | PM.PNGS ---
Progress Note: A&P Assessment and Plan (1) Acute cholecystitis: Code(s): K81.0 - Acute cholecystitis Status: Acute Assessment and Plan: MRCP showed acute cholecystitis. No abdominal pain this morning but patient had a fever last night Discussed treatment options in detail. Given his recurrent symptoms and sepsis, he would likely fail conservative management or return with recurrent issues. We also discussed the option of a laparoscopic cholecystectomy that would be done by Dr. Diaz. Description of the procedure, risks, benefits, expected outcomes, and expected recovery were discussed with the patient in detail. We discussed the risks of bile leak and bile duct injury, liver/bowel injury, bleeding, and infection. Also discussed the possibility of having to convert to an open procedure if necessary. He wishes to proceed with surgery. We have added him to the surgery schedule for tomorrow. Will start a diet and make him NPO after midnight. Continue IV antibiotics. (2) Sepsis: Code(s): A41.9 - Sepsis, unspecified organism Status: Acute Assessment and Plan: Secondary to acute cholecystitis Continue IV antibiotics. Febrile last night, WBC trending down. Blood cx pending Plan I have discussed the patient's case and plan of care with Dr. Diaz. Subjective Subjective Date/Time Seen: 07/18/24 10:44 Patient reports: no new complaints and fever Interval history: Patient seen today. WBC count down to 14.4k and total bilirubin down to 2.1. He had a fever last night and reports having mid sternal chest pain earlier this morning that spontaneously resolved. He had a troponin drawn that was negative. MRCP today showe acute cholecystitis. Exam Const: General: comfortable and no acute distress Orientation/consciousness: patient oriented x3 GI: Inspection: non-distended GI Palp: Yes Soft to palpation, No Tenderness to palpation present (GI), Yes Guarding due to palpation present (GI) (RUQ), Yes No hepatosplenomegaly present and No Rebound tenderness present Auscultation: normal bowel sounds Objective Data Vital Signs Vital Signs: Vital Signs - 24 hr 07/17/24 10:45 07/17/24 11:00 07/17/24 11:18 Temperature Pulse Rate Respiratory Rate Blood Pressure Pulse Oximetry 95 96 95 Oxygen Delivery 07/17/24 11:32 07/17/24 11:45 07/17/24 11:46 Temperature Pulse Rate Respiratory Rate Blood Pressure 166/99 H Pulse Oximetry 97 98 96 Oxygen Delivery 07/17/24 12:00 07/17/24 12:01 07/17/24 12:15 Temperature Pulse Rate Respiratory Rate Blood Pressure 163/93 H Pulse Oximetry 99 99 97 Oxygen Delivery 07/17/24 12:16 07/17/24 12:30 07/17/24 12:31 Temperature Pulse Rate Respiratory Rate Blood Pressure 173/100 H 168/96 H Pulse Oximetry 97 97 97 Oxygen Delivery 07/17/24 12:49 07/17/24 13:13 07/17/24 13:15 Temperature Pulse Rate Respiratory Rate Blood Pressure Pulse Oximetry 98 97 92 Oxygen Delivery 07/17/24 13:16 07/17/24 13:31 07/17/24 13:32 Temperature Pulse Rate Respiratory Rate Blood Pressure 167/87 H 177/89 H Pulse Oximetry 94 93 97 Oxygen Delivery 07/17/24 13:45 07/17/24 13:46 07/17/24 13:56 Temperature Pulse Rate Respiratory Rate Blood Pressure 173/93 H Pulse Oximetry 95 97 100 Oxygen Delivery 07/17/24 14:00 07/17/24 14:16 07/17/24 14:33 Temperature 98.7 F Pulse Rate Respiratory Rate Blood Pressure 151/93 H 160/76 H Pulse Oximetry 97 Oxygen Delivery 07/17/24 15:32 07/17/24 16:14 07/17/24 16:22 Temperature 100.4 F H 100.9 F H 100.9 F H Pulse Rate 111 H Respiratory Rate 19 Blood Pressure 155/94 H Pulse Oximetry 93 Oxygen Delivery 07/17/24 16:33 07/17/24 17:16 07/17/24 17:51 Temperature 101.2 F H 101 F H Pulse Rate Respiratory Rate Blood Pressure Pulse Oximetry Oxygen Delivery Room Air
--- NOTE | 2024-07-18 11:01 | PC.NURSE ---
On 07/18/24, the student, [Alec Upton], provided care and completed [facility] documentation on this patient. I have reviewed the student's documentation and agree with the findings.
--- NOTE | 2024-07-18 11:31 | PM.IMPN ---
Progress Note: A&P Assessment and Plan (1) Sepsis: Code(s): A41.9 - Sepsis, unspecified organism Status: Acute Assessment and Plan: Fever 101.2, tachycardia, leukocytosis, with suspected acute cholecystitis Leukocytosis of 17, lactic acid normal 0.5, procalcitonin pending Patient received 1 L of normal saline in the ER was started on maintenance fluids at 60 mL an hour Zosyn initiated Blood cultures are pending (2) Acute cholecystitis: Code(s): K81.0 - Acute cholecystitis Status: Acute Assessment and Plan: Presented with epigastric abdominal pain for the last 3-[address] abdomen and pelvis showed acute cholecystitis. MRCP movement of the neck of the gallbladder. IV fluids at 60 mL an hour Antibiotic Zosyn Plan for patient to go to surgery tomorrow for a lap cholecystectomy Diabetic diet now and NPO at midnight for surgery General surgery was consulted, recs appreciated (3) Hyperbilirubinemia: Code(s): E80.6 - Other disorders of bilirubin metabolism Status: Acute Assessment and Plan: Secondary to impacted gallstone and the setting of acute cholecystitis (4) Left renal mass: Code(s): N28.89 - Other specified disorders of kidney and ureter Status: Acute Assessment and Plan: Incidental finding on CT MRCP showed 2.8 cm enhancing left renal mass consistent with renal cell carcinoma Urology was consulted, recs appreciated (5) Hypertension: Code(s): I10 - Essential (primary) hypertension Status: Chronic Assessment and Plan: Blood pressure is ranging systolic 160s to 170s Continue with home dose lisinopril Likely will need and adjustment of this medication for better blood pressure control In the setting of sepsis will hold on this for now (6) Type 2 diabetes mellitus: Code(s): E11.9 - Type 2 diabetes mellitus without complications Status: Acute Assessment and Plan: Metformin 1000 mg p.o. b.i.d. and Januvia 25 mg daily Holding oral medications while inpatient AC/HS accu checks, hypoglycemia protocol Low dose SSI Plan DVT prophylaxis: SCD Glycemic control: SSI low dose, hypoglycemia protocol Code Status: FUll code Disposition: 78-year-old man who presents with mid epigastric abdominal pain was found have acute cholecystitis. He also triggered sepsis with leukocytosis of 17 and a fever 101.4 on admission. He is being treated with IV antibiotics. He will go for surgery on 07/19 laparoscopic cholecystectomy. There was also an incidental finding of a renal cell carcinoma. Urology was consulted. Medication reconciliation obtained via the following: Nurse completed on admission The file time of this note does not necessarily represent the time the patient was seen. Subjective Date/time seen: 07/18/24 11:31 Interval history: 07/18: Nursing called to report the patient was having substernal chest pain. EKG showed sinus tach and troponin was negative. The patient reports the chest pain started when he was in his MRCP. He thinks it was anxiety related. He denies chest pain at this time, no shortness of breath, the pain did not radiate. He remains NPO after his MRI. He reports having abdominal pain that started Wednesday night after having pizza for dinner. He continued to have abdominal pain over the next few days. He says he tried to make himself vomit but was unsuccessful. Nothing seemed to make the pain better and eating some yogart and drinking water did not make it worse. His last bowel movement was two days ago. He is still passing flatus. Review of Systems Review of Systems: All systems reviewed & are unremarkable except as noted in HPI and below Exam Narrative: General: well appearing, appears stated age. HEENT: normocephalic, atraumatic. Mucous membranes moist. EOMI, PERRLA, bilat
[2024-07-18 11:57] LABS: Glucose Point of Care 195 mg/dl (65-105)
[2024-07-18 12:24] LABS: Procalcitonin 0.5 ng/mL
[2024-07-18 12:54] LABS: Troponin I < 0.012 ng/mL (0.000-0.034)
[2024-07-18 14:00] VITALS: BP 171/83; PULSE 110; RESP 18; TEMP 36.9; O2SAT 96
[2024-07-18 15:59] LABS: Troponin I < 0.012 ng/mL (0.000-0.034)
[2024-07-18 17:17] LABS: Glucose Point of Care 226 mg/dl (65-105)
[2024-07-18] MEDS: SODIUM CHLORIDE 0.9% IV 1,000 ML 60 ML IV CONT (18:18)
[2024-07-18] MEDS: MORPHINE SULFATE (*CRX) 2 MG/ML INJ IV PUSH ×2 (18:23→23:13)
[2024-07-18] MEDS: hydrALAZINE HCL 20 MG/ML VIAL 10 MG IV PUSH (18:23)
[2024-07-18] MEDS: INSULIN ASPART (*BKC) 100 UNITS/ML SUB-Q (18:24)
[2024-07-18 20:27] VITALS: BP 150/75; PULSE 109; RESP 20; TEMP 37.3; O2SAT 94
[2024-07-18 21:16] LABS: Glucose Point of Care 218 mg/dl (65-105)
[2024-07-18 22:00] VITALS: BP 155/86; PULSE 111; RESP 20; TEMP 37.1; O2SAT 94
[2024-07-18] MEDS: DEXTROSE 5%/0.9% SOD CHL 1,000 ML 100 ML IV CONT (23:06)
[2024-07-19] VITALS (10 sets, daily range): BP systolic 134–172; BP diastolic 68–99; PULSE 84–111; RESP 18–22; TEMP 36.6–36.9; O2SAT 92–100
[2024-07-19] MEDS: PIPERACILLN/TAZ 3.375GM/NS50ML 3.375 GM/50 ML BAG IVPB ×2 (05:01→12:48)
[2024-07-19 05:16] LABS: Basophils Percent Auto 0.2 % (0.2-1.2); Eosinophils Absolute Auto 0.1 K/mm3 (0-0.3); Eosinophils Percent Auto 0.6 % (0-4.4); Hemoglobin 14.1 g/dL (14.0-18.0); Immature Granulocyte Absolute 0.06 K/mm3 (0.00-0.031); Immature Granulocyte Percent A 0.5 % (0-0.5); Mean Corpuscular HGB Conc 34.4 g/dl (32-36); Mean Corpuscular Hemoglobin 32.1 pg (26-34); Mean Corpuscular Volume 93.4 fl (80-100); Mean Platelet Volume 10.2 fl (7.4-10.4); Monocytes Absolute Auto 0.8 K/mm3 (0.1-0.6); Monocytes Percent Auto 6.2 % (2.6-8.5); Neutrophils Absolute Auto 10.5 K/mm3 (1.3-6.7); Neutrophils Percent Auto 84.5 % (45.5-73.1); Platelet Count Result 151 k/mm3 (150-375); Red Blood Count 4.39 M/mm3 (4.6-6.20); Red Cell Distribution Width 12.7 % (11.5-14.5); White Blood Count 12.5 K/mm3 (4.5-10.0)
[2024-07-19 05:25] LABS: INR 1.2; Prothrombin Time 15.8 Seconds (11.1-14.7)
[2024-07-19 05:26] LABS: Partial Thromboplastin Time 36.8 Seconds (22.3-36.8)
[2024-07-19 05:31] LABS: Alanine Aminotransferase 14 U/L (6-50); Albumin Level 3.5 g/dL (3.5-5.1); Alkaline Phosphatase 64 U/L (38-126); Anion Gap 10 mmol/L (4-12); Aspartate Amino Transferase 28 U/L (17-59); Bilirubin,Total 1.4 mg/dL (0.2-1.3); Blood Urea Nitrogen 10 mg/dL (9-20); Calcium 8.2 mg/dL (8.4-10.2); Carbon Dioxide 18 mmol/L (22-30); Chloride 103 mmol/L (98-107); Estimated CRCL calculation 81 ml/min; Estimated Glomerular Filt Rate > 60; Glucose 223 mg/dL (65-110); Magnesium 2.1 mg/dL (1.6-2.3); Potassium 3.7 mmol/L (3.4-5.0); Sodium 131 mmol/L (137-145)
[2024-07-19 05:39] LABS: Glucose Point of Care 222 mg/dl (65-105)
--- NOTE | 2024-07-19 08:38 | PM.IMPN ---
Progress Note: A&P Assessment and Plan (1) Sepsis: Code(s): A41.9 - Sepsis, unspecified organism Status: Acute (2) Dehydration: Code(s): E86.0 - Dehydration Status: Acute (3) Left renal mass: Code(s): N28.89 - Other specified disorders of kidney and ureter Status: Acute (4) Type 2 diabetes mellitus: Code(s): E11.9 - Type 2 diabetes mellitus without complications Status: Acute (5) Acute cholecystitis: Code(s): K81.0 - Acute cholecystitis Status: Acute (6) Hypertension: Code(s): I10 - Essential (primary) hypertension Status: Chronic (7) Diabetes: Code(s): E11.9 - Type 2 diabetes mellitus without complications Status: Chronic (8) Renal mass: Code(s): N28.89 - Other specified disorders of kidney and ureter Status: Acute (9) Acute cholecystitis: Code(s): K81.0 - Acute cholecystitis Status: Acute (10) Hyperbilirubinemia: Code(s): E80.6 - Other disorders of bilirubin metabolism Status: Acute Plan (1) Sepsis: Code(s): A41.9 - Sepsis, unspecified organism Status: Acute Assessment and Plan: Fever 101.2, tachycardia, leukocytosis, with suspected acute cholecystitis Leukocytosis of 17, lactic acid normal 0.5, procalcitonin pending Patient received 1 L of normal saline in the ER was started on maintenance fluids at 60 mL an hour Zosyn initiated Blood cultures are pending 07/19: Patient is afebrile over the night, leukocytosis persists white blood count is trending down, blood culture no growth so far, blood pressure stable (2) Acute cholecystitis: Code(s): K81.0 - Acute cholecystitis Status: Acute Assessment and Plan: Presented with epigastric abdominal pain for the last 3-[address] abdomen and pelvis showed acute cholecystitis. MRCP movement of the neck of the gallbladder. IV fluids at 60 mL an hour Antibiotic Zosyn Plan for patient to go to surgery tomorrow for a lap cholecystectomy Diabetic diet now and NPO at midnight for surgery General surgery was consulted, recs appreciated Pain is better controlled, Plans cholecystectomy today 07/19 (3) Hyperbilirubinemia: Code(s): E80.6 - Other disorders of bilirubin metabolism Status: Acute Assessment and Plan: Secondary to impacted gallstone and the setting of acute cholecystitis (4) Left renal mass: Code(s): N28.89 - Other specified disorders of kidney and ureter Status: Acute Assessment and Plan: Incidental finding on CT MRCP showed 2.8 cm enhancing left renal mass consistent with renal cell carcinoma Urology was consulted, recs appreciated Management per urologist, outpatient follow-up (5) Hypertension: Code(s): I10 - Essential (primary) hypertension Status: Chronic Assessment and Plan: Blood pressure is ranging systolic 160s to 170s Continue with home dose lisinopril Likely will need and adjustment of this medication for better blood pressure control In the setting of sepsis will hold on this for now (6) Type 2 diabetes mellitus: Code(s): E11.9 - Type 2 diabetes mellitus without complications Status: Acute Assessment and Plan: Metformin 1000 mg p.o. b.i.d. and Januvia 25 mg daily Holding oral medications while inpatient AC/HS accu checks, hypoglycemia protocol Low dose SSI Will control glucose < 180 post operation Subjective Date/time seen: 07/19/24 08:38 Interval history: I saw examined patient today, patient feels pain is well controlled, denies nausea vomiting. Patient afebrile, blood pressure stable, patient also denies chest pain, shortness a breath, focal weakness Exam Narrative: GENERAL: Pleasant, in no acute distress. Well-nourished. - EYES: EOMI. Anicteric. - HENT: Moist mucous membranes. - LUNGS: Clear to auscultation bilaterally, no wheezing, rhonchi, or rales. - CARDI
[2024-07-19 08:44] LABS: Glucose Point of Care 229 mg/dl (65-105)
[2024-07-19] MEDS: SODIUM CHLORIDE 0.9% IV 1,000 ML 60 ML IV CONT (10:02)
--- NOTE | 2024-07-19 10:32 | WPDHPUPDATE1 ---
History and Physical Update Update Date/Time: 07/19/24 10:32 History and Physical has been reviewed, including an updated exam of the patient. There are NO changes in the patient's condition. Risks, benefits, and alternatives have been discussed and questions answered. Patient agrees to proceed with procedure.
[2024-07-19 12:25] LABS: Glucose Point of Care 191 mg/dl (65-105)
--- NOTE | 2024-07-19 12:40 | WPDANESEPPF ---
Anes - Initial Pre Proc Eval Procedure: Operation Date: 07/19/24 13:30 Proposed Procedures p Laparoscopic Cholecystectomy, possible Open - Kelly Diaz MD Date/Time: 07/19/24 12:40 Surgeon: Kurt Frank MD Pre Op Diagnosis: Acute cholecystitis Patient Data Age: 78 Gender: M Height: 1.7 m Weight: 66.1 kg Last Vital Signs Temp 36.9 C 07/19/24 05:34 Pulse 105 H 07/19/24 05:34 Resp 20 07/19/24 05:34 BP 147/69 H 07/19/24 05:34 Pulse Ox 94 07/19/24 05:34 O2 Del Method Room Air 07/19/24 08:20 Allergies Allergy/AdvReac Type Severity Reaction Status Date / Time sulfamethoxazole Allergy Redness of Verified 07/15/24 06:46 [From Bactrim] Skin trimethoprim [From Bactrim] Allergy Redness of Verified 07/15/24 06:46 Skin Home Medications Medication Instructions Recorded Confirmed Type acetaminophen 500 mg tablet 1,000 mg PO TID PRN pain #30 tabs 07/15/24 07/17/24 Rx (Tylenol Extra Strength) ondansetron 4 mg disintegrating 4 mg PO Q8H PRN nausea and 07/15/24 07/17/24 Rx tablet vomiting #10 tabs aspirin 81 mg tablet 81 mg PO DAILY 07/17/24 07/17/24 History atorvastatin 10 mg tablet 10 mg PO DAILY 07/17/24 07/17/24 History lisinopril 2.5 mg tablet 2.5 mg PO DAILY 07/17/24 07/17/24 History metformin 1,000 mg tablet 1,000 mg PO BID 07/17/24 07/17/24 History [id number]-huf-hrgau 120 mcg-lutein 1 tablet PO DAILY 07/17/24 07/17/24 History 150 mcg-herb 50 mg chewable tablet (Alive Men's 50 Plus Multivitamin) sitagliptin phosphate 25 mg tablet 25 mg PO DAILY 07/17/24 07/17/24 History (Januvia) Laboratory Tests 07/18/24 07/18/24 07/18/24 12:23 15:27 16:50 WBC RBC Hgb Hct MCV MCH MCHC RDW Plt Count MPV Immature Gran % (Auto) Neut % (Auto) Lymph % (Auto) [place] % (Auto) Eos % (Auto) Baso % (Auto) Lymph # (Auto) [place] # (Auto) Eos # (Auto) Baso # (Auto) Abs Immat Gran (auto) Absolute Neuts (auto) Absolute Nucleated RBC Nucleated RBC % PT INR APTT Sodium Potassium Chloride Carbon Dioxide Anion Gap BUN Creatinine Estim Creat Clear Calc Estimated GFR Glucose POC Capillary Glucose 226 H mg/dl (65-105) Calcium Magnesium Total Bilirubin AST ALT Alkaline Phosphatase Troponin I < 0.012 ng/mL < 0.012 ng/mL (0.000-0.034) (0.000-0.034) Total Protein Albumin 07/18/24 07/19/24 07/19/24 20:19 04:58 05:26 WBC 12.5 H K/mm3 (4.5-10.0) RBC 4.39 L M/mm3 (4.6-6.20) Hgb 14.1 g/dL (14.0-18.0) Hct 41.0 L % (42.0-52.0) MCV 93.4 fl (80-100) MCH 32.1 pg (26-34) MCHC 34.4 g/dl (32-36) RDW 12.7 % (11.5-14.5) Plt Count 151 k/mm3 (150-375) MPV 10.2 fl (7.4-10.4) Immature Gran % (Auto) 0.5 % (0-0.5) Neut % (Auto) 84.5 H % (45.5-73.1) Lymph % (Auto) 8.0 L % (18.3-44.2) [place] % (Auto) 6.2 % (2.6-8.5) Eos % (Auto) 0.6 % (0-4.4) Baso % (Auto) 0.2 % (0.2-1.2) Lymph # (Auto) 1.00 K/mm3 (0.9-3.2) [place] # (Auto) 0.8 H K/mm3 (0.1-0.6) Eos # (Auto) 0.1 K/mm3 (0-0.3) Baso # (Auto) 0.0 K/mm3 (0.0-0.1) Abs Immat Gran (auto) 0.06 H K/mm3 (0.00-0.031) Absolute Neuts (auto) 10.5 H K/mm3 (1.3-6.7) Absolute Nucleated RBC 0.000 K/mm3 (0.0-0.012) Nucleated RBC %
[2024-07-19] MEDS: LACTATED RINGERS 1,000 ML 30 ML IV CONT ×2 (12:53→14:47)
[2024-07-19] MEDS: BUPIVACAINE/EPINEPHRINE 0.5% 50 ML VIAL 30 ML INFILTRATE (13:36)
[2024-07-19] MEDS: fentaNYL CITRATE INJ (*CRX) 100 MCG/2 ML VIAL 25 MCG IV PUSH ×3 (14:53→15:49)
[2024-07-19] MEDS: INSULIN ASPART (*BKC) 100 UNITS/ML SUB-Q (15:02)
--- NOTE | 2024-07-19 15:13 | W.PM.PROC2 ---
Procedure Note - Detailed Date of Procedure 07/19/24 Pre-op Diagnosis severe acute cholecystitis with cholelithiasis Post-op Diagnosis Same Procedure Performed Laparoscopic cholecystectomy, extensive lysis of adhesisons Surgeon Kelly Diaz MD Anesthesia General Indications 78-year-old male presented to the hospital complaining of severe right upper quadrant abdominal pain associated with nausea and vomiting. Workup including imaging significant for severe cholecystitis, cholelithiasis. Findings severe cholecystitis with cholelithiasis Description of Procedure The patient was taken to the operating room placed in the supine position. After adequate induction of general anesthesia, the patient was prepped and draped in normal sterile fashion. A time-out was then performed to verify the patient's identity as well as the procedure being performed. I then made a 5 mm incision in the infraumbilical region. Through this, a Veress needle was placed into the peritoneal cavity and CO2 gas was then insufflated. After adequate pneumoperitoneum was achieved, the Veress needle was removed and a 5 mm optiview trocar was placed through this incision under direct visualization. I then placed the laparoscope through this trocar site and under direct visualization placed a further 12 mm subxiphoid port as well as 2 additional 5 mm ports in the right upper abdomen. A large inflammatory mass was noted in the right upper quadrant. The liver and this mass were plastered with omental adhesions. Using very careful dissection with the bovie cautery, I was able to slowly takedown these omental adhesions. Once this lysis of adhesions was done, which took approximately 30 minutes, I was able to identify a severely inflamed and distended gallbladder. Given the degree of inflammation, I had to decompress the gallbladder to allow manipulation. The gallbladder was decompressed with an ovarian needle and thick sludge was noted. I was then able to place a grasper at the dome of the gallbladder and this was retracted anterior and cephalad up over the liver. A 2nd retractor was then placed at the infundibulum and retracted laterally, this allowed visualization of the triangle of Calot. I then was able to visualize the cystic duct in its entirety from its proximal insertion into the gallbladder, to its distal junction with the common hepatic/common bile duct junction. At this point, I carefully skeletonized the proximal cystic duct with the [place] dissector. I then clipped and transected the proximal cystic duct. Next I visualized the cystic artery. Again the artery was skeletonized, clipped, and transected. I then used the Bovie cautery to take down the peritoneal attachments of the gallbladder off the liver bed. This was difficult given the amount of inflammation in the posterior space. Once the gallbladder specimen was completely detached, an endo-pouch was placed through the 12 mm port site. I then placed the gallbladder specimen into the Endo pouch and removed the endo-pouch from the 12 mm port site. The specimen will now be sent to pathology for further review. I then copiously irrigated the right upper quadrant. Some mild oozing was noted in the liver bed and this was controlled with the bovie cautery. I then placed some hemostatic powder in the liver bed. Hemostasis was noted in the liver bed, the clips were noted to be in good position on both the cystic duct stump and the cystic artery stump. No other pathology was noted in the right upper quadrant. I then moved the laparoscope to the subxiphoid port. No iatrogenic injury or other pathology was noted in the lower abdomen. I then closed the 12 mm trocar site under direct visualization using the Peter cone and 0 Vicryl suture. At this point, the abdomen was desufflated and all ports removed. All port sites were then closed with 4.O Monocryl subcuticular sutures. Dermabond was placed on each incision. The patient t
[2024-07-19 15:19] LABS: Glucose Point of Care 207 mg/dl (65-105)
[2024-07-19 17:10] LABS: Glucose Point of Care 202 mg/dl (65-105)
[2024-07-19] MEDS: INSULIN HUMAN REGULAR (*BKC) 100 UNITS/ML 8 UNITS SUB-Q (21:01)
[2024-07-19 23:44] LABS: Glucose Point of Care 374 mg/dl (65-105)
[2024-07-20 00:05] LABS: Glucose Point of Care 191 mg/dl (65-105)
[2024-07-20 00:54] VITALS: BP 139/78; PULSE 94; RESP 20; TEMP 36.4; O2SAT 93
[2024-07-20 04:00] VITALS: BP 143/81; PULSE 98; RESP 20; TEMP 36.6; O2SAT 92
[2024-07-20] MEDS: SODIUM CHLORIDE 0.9% IV 1,000 ML 60 ML IV CONT (05:33)
[2024-07-20 05:42] LABS: Basophils Percent Auto 0.1 % (0.2-1.2); Hematocrit 37.5 % (42.0-52.0); Hemoglobin 12.6 g/dL (14.0-18.0); Immature Granulocyte Absolute 0.04 K/mm3 (0.00-0.031); Immature Granulocyte Percent A 0.4 % (0-0.5); Lymphocytes Absolute Auto 0.86 K/mm3 (0.9-3.2); Lymphocytes Percent Auto 8.9 % (18.3-44.2); Mean Corpuscular HGB Conc 33.6 g/dl (32-36); Mean Corpuscular Hemoglobin 32.2 pg (26-34); Mean Corpuscular Volume 95.9 fl (80-100); Mean Platelet Volume 10.5 fl (7.4-10.4); Monocytes Absolute Auto 0.5 K/mm3 (0.1-0.6); Monocytes Percent Auto 5.6 % (2.6-8.5); Neutrophils Absolute Auto 8.2 K/mm3 (1.3-6.7); Platelet Count Result 180 k/mm3 (150-375); Red Blood Count 3.91 M/mm3 (4.6-6.20); Red Cell Distribution Width 13.1 % (11.5-14.5); White Blood Count 9.6 K/mm3 (4.5-10.0)
[2024-07-20 05:54] LABS: Glucose Point of Care 195 mg/dl (65-105)
[2024-07-20 06:05] LABS: Alanine Aminotransferase 48 U/L (6-50); Albumin Level 3.5 g/dL (3.5-5.1); Alkaline Phosphatase 58 U/L (38-126); Anion Gap 11 mmol/L (4-12); Aspartate Amino Transferase 84 U/L (17-59); Bilirubin,Total 1.3 mg/dL (0.2-1.3); Blood Urea Nitrogen 11 mg/dL (9-20); Calcium 8.1 mg/dL (8.4-10.2); Carbon Dioxide 25 mmol/L (22-30); Chloride 102 mmol/L (98-107); Estimated CRCL calculation 71 ml/min; Estimated Glomerular Filt Rate > 60; Glucose 186 mg/dL (65-110); Magnesium 2.2 mg/dL (1.6-2.3); Potassium 4.1 mmol/L (3.4-5.0); Sodium 138 mmol/L (137-145)
[2024-07-20 08:00] VITALS: BP 155/80; PULSE 91; RESP 20; TEMP 36.8; O2SAT 97
[2024-07-20 08:17] LABS: Glucose Point of Care 175 mg/dl (65-105)
[2024-07-20] MEDS: lisinopriL 2.5 MG TABLET PO (08:21)
--- NOTE | 2024-07-20 08:39 | PM.DS ---
DS: Admitting Diagnosis Discharge Date 07/20/2024 Admitting Diagnosis Abdominal pain DS: Discharge Diagnosis Discharge Diagnosis (1) Sepsis: Code(s): A41.9 - Sepsis, unspecified organism Status: Acute (2) Dehydration: Code(s): E86.0 - Dehydration Status: Acute (3) Left renal mass: Code(s): N28.89 - Other specified disorders of kidney and ureter Status: Acute (4) Type 2 diabetes mellitus: Code(s): E11.9 - Type 2 diabetes mellitus without complications Status: Acute (5) Acute cholecystitis: Code(s): K81.0 - Acute cholecystitis Status: Acute (6) Hypertension: Code(s): I10 - Essential (primary) hypertension Status: Chronic (7) Diabetes: Code(s): E11.9 - Type 2 diabetes mellitus without complications Status: Chronic (8) Renal mass: Code(s): N28.89 - Other specified disorders of kidney and ureter Status: Acute (9) Hyperbilirubinemia: Code(s): E80.6 - Other disorders of bilirubin metabolism Status: Acute DS: Summary Hospital Course Hospital Course: # Sepsis: Fever 101.2, tachycardia, leukocytosis, with suspected acute cholecystitis Leukocytosis of 17, lactic acid normal 0.5, procalcitonin 0.5 Patient received IV fluid. Zosyn started. Leukocytosis resolved. Blood culture no growth to date # Acute cholecystitis: Presented with epigastric abdominal pain for the last 3-[address] abdomen and pelvis showed acute cholecystitis. MRCP back did gallstone at neck of the gallbladder. Status post lap cholecystectomy # Hyperbilirubinemia: Secondary to impacted gallstone and the setting of acute cholecystitis # Left renal mass: Incidental finding on CT MRCP showed 2.8 cm enhancing left renal mass consistent with renal cell carcinoma Urology was consulted, recs appreciated Management per urologist, outpatient follow-up # Hypertension: Blood pressure is ranging systolic 160s to 170s Continue with home dose lisinopril Likely will need and adjustment of this medication for better blood pressure control In the setting of sepsis will hold on this for now # Type 2 diabetes mellitus: Metformin 1000 mg p.o. b.i.d. and Januvia 25 mg daily Time Spent with Patient Time attestation: Total time spent providing and/or coordinating discharge services: 35 minutes Exam Narrative: GENERAL: Pleasant, in no acute distress. Well-nourished. - EYES: EOMI. Anicteric. - HENT: Moist mucous membranes. - LUNGS: Clear to auscultation bilaterally, no wheezing, rhonchi, or rales. - CARDIOVASCULAR: Regular rate and rhythm. No murmur. No JVD. - ABDOMEN: Soft, surgical incision clean and dry, nontender and non-distended. No palpable masses. - EXTREMITIES: No edema. Peripheral pulses 2+. Non-tender. - NEUROLOGIC: No focal neurological deficits. CN II-XII grossly intact. - PSYCHIATRIC: Awake, Alert and oriented x 3. Appropriate mood and affect. - SKIN: No rashes or lesions. Warm. - LYMPH: No cervical lymphadenopathy. DS: Data Data Completed and Pending Pending studies at discharge: Pending at discharge 07/19/24 13:36 Surgical [PTH] Routine Labs on day of discharge: Labs from last 24 hours 07/20/24 07/20/24 07/20/24 08:00 05:50 05:19 WBC 9.6 RBC 3.91 L Hgb 12.6 L Hct 37.5 L MCV 95.9 MCH 32.2 MCHC 33.6 RDW 13.1 Plt Count 180 MPV 10.5 H Immature Gran % (Auto) 0.4 Neut % (Auto) 85.0 H Lymph % (Auto) 8.9 L [place] % (Auto) 5.6 Eos % (Auto) 0.0 Baso % (Auto) 0.1 L Lymph # (Auto) 0.86 L [place] # (Auto) 0.5 Eos # (Auto) 0.0 Baso # (Auto) 0.0 Abs Immat Gran (auto) 0.04 H Absolute Neuts (auto) 8.2 H Absolute Nucleated RBC 0.000 Nucleated RBC % 0.0 Sodium 138 Potassium 4.1 Chloride 102 Carbon Dioxide 25 Anion Gap 11 BUN 11 Creatinine 0.70 Estim Creat Clear Calc 71 Estimated GFR > 60 Glucose 186 H
--- NOTE | 2024-07-20 10:41 | PM.PNGS ---
Progress Note: A&P Assessment and Plan (1) Acute cholecystitis: Code(s): K81.0 - Acute cholecystitis Status: Acute Assessment and Plan: Doing well postop day 1. Okay from a surgical standpoint to discharge on a low-fat diet today. Follow-up in [address] Diaz. Subjective Subjective Date/Time Seen: 07/20/24 10:41 Post Op day: 1 (laparoscopic cholecystectomy, lysis of adhesions) Patient reports: tolerating a regular diet, voiding w/o difficulty, flatus and no bowel movement Interval history: Patient feeling well this morning. Reports very minimal, if any, incisional soreness, only with activity. No nausea, vomiting, or abdominal pain. Tolerating activity. Plans on staying with a friend for the first few days after discharge. Exam Const: General: comfortable and no acute distress GI: Inspection: non-distended and incision (incisions dry and intact) GI Palp: Yes Soft to palpation, Yes Tenderness to palpation present (GI) (incisional) and No Guarding due to palpation present (GI) Auscultation: normal bowel sounds Neuro: General: moves all extremities and no focal motor deficits Extrem: General: no calf tenderness and no edema Psych: Mental Status: mental status grossly normal Insight: Good insight present (Psych) Objective Data Vital Signs Vital Signs: Vital Signs - 24 hr 07/19/24 12:42 07/19/24 14:47 07/19/24 15:00 Temperature 98 F 97.8 F Pulse Rate 103 H 91 84 Respiratory Rate 18 20 20 Blood Pressure 162/87 H 172/99 H 156/77 H Pulse Oximetry 97 100 99 Oxygen Delivery Simple Face Mask Simple Face Mask Oxygen Flow Rate 8 8 07/19/24 15:17 07/19/24 15:21 07/19/24 15:30 Temperature Pulse Rate 84 86 Respiratory Rate 22 H 22 H Blood Pressure 145/68 H 147/76 H Pulse Oximetry 100 100 96 Oxygen Delivery Simple Face Mask Room Air Room Air Oxygen Flow Rate 8 07/19/24 15:40 07/19/24 15:45 07/19/24 20:07 Temperature 97.8 F Pulse Rate 86 111 H Respiratory Rate 22 H 18 Blood Pressure 154/79 H 134/75 Pulse Oximetry 92 97 93 Oxygen Delivery Nasal Cannula Nasal Cannula Oxygen Flow Rate 2 2 07/20/24 00:54 07/20/24 04:00 07/20/24 08:00 Temperature 97.5 F L 97.8 F 98.2 F Pulse Rate 94 98 91 Respiratory Rate 20 20 20 Blood Pressure 139/78 143/81 H 155/80 H Pulse Oximetry 93 92 97 Oxygen Delivery Oxygen Flow Rate 07/20/24 08:20 Temperature Pulse Rate Respiratory Rate Blood Pressure Pulse Oximetry Oxygen Delivery Room Air Oxygen Flow Rate Intake/Output Intake/Output: Intake & Output 07/17/24 07/18/24 07/19/24 07/20/24 23:59 23:59 23:59 23:59 Intake Total 2100 3001 849.5 1440 Balance 2100 3001 849.5 1440 Meds/Results Medications: Active Medications Generic Name Dose Route Start Last Admin Trade Name Freq PRN Reason Stop Dose Admin Acetaminophen 650 mg 07/17/24 16:04 07/18/24 02:27 Acetaminophen 325 Mg Tablet PO 650 mg Q6H PRN Administration Mild Pain (1-3) or Fever Hydrocodone Bitart/Acetaminophen 1 tab 07/19/24 15:58 Hydrocodone/Acetaminophen (*Crx) 5-325 Mg Tablet PO Q4H PRN Pain Rated 4-6 Dextrose 12.5 gm 07/17/24 23:21 Dextrose 50% 25 Gm/50 Ml Syringe IV PUSH PRN PRN Hypoglycemia Protocol Glucagon 1 mg 07/17/24 23:21 Glucagon For Inj 1 Mg Vial IM PRN PRN Hypoglycemia Protocol Glucose 15 gm 07/17/24 23:21 Glucose Oral Gel 15 Gm Of Glucse In 37.5 Gm Tube PO PRN PRN Hypoglycemia Protocol Hydralazine HCl 10 mg 07/18/24 17:20 07/18/24 18:23 Hydralazine Hcl 20 Mg/Ml Vial IV PUSH 10 mg Q8H PRN Administration Blood Pressure - High Sodium Chloride 1,000 mls @ 60 mls/hr 07/17/24 15:05 07/20/24 05:33 Normal Saline Iv IV CONT 60 mls/hr .[id number] DAVID Administration Dextrose 1,000 mls @ 100 mls/hr 07/17/24 23:21 Dextrose 5% 1,000 Ml IVPB PRN PRN Hypoglycemia Protocol Insulin Aspar
== END 2024-07-20 11:30 | disposition home or self-care (01) | DRG 854 ==
LOC: ANHED 09:54 → ANH2MED 14:13
PROVIDERS: Nurse Practitioner Acute Care; Nurse Practitioner Family; Physician Assistant; Surgery; Admitting Provider Internal Medicine; Emergency Provider Physician Assistant; Visit Provider Internal Medicine
PROC: 0FT44ZZ Resection of Gallbladder, Percutaneous Endoscopic Approach (ICD-10-PCS; CPT 47562; principal; 2024-07-19 13:30)
DX: A41.9 Sepsis, unspecified organism (principal); K80.01 Calculus of gallbladder with acute cholecystitis with obstruction; I10 Essential (primary) hypertension; N28.89 Other specified disorders of kidney and ureter; E11.9 Type 2 diabetes mellitus without complications; E78.5 Hyperlipidemia, unspecified; E80.6 Other disorders of bilirubin metabolism; Z79.82 Long term (current) use of aspirin; Z90.79 Acquired absence of other genital organ(s); Z85.46 Personal history of malignant neoplasm of prostate
CPT/HCPCS: 36415; 71045; 71275; 74174; 74183; 76376; 76705; 80048; 80053; 81001; 81003; 82010; 82948; 83605; 83690; 83735; 84145; 84484; 85025; 85055; 85610; 85730; 86140; 87040; 88304; 93005; 96361; 96365; 96367; 96375; 99284; 99285; A9270; A9577; G0378; J0330; J0360; J0696; J1100; J1815; J1836; J2270; J2405; J2543; J2704; J3010; J7030; J7042; J7120; Q9967